=== PATIENT | female | born 1955 | race Hispanic/Latino ===

== ENCOUNTER 2020-10-17 07:27 | Day surgery (SDC) | payer BC ==
[2020-10-17] MEDS ORDERED: Ringers Lactate 1,000 ML IV ONE (08:06)
[2020-10-17] MEDS ORDERED: propofoL 200 MG/20 ML VIAL IV ONE (08:44)
[2020-10-17] MEDS ORDERED: LIDOCAINE 1% MPF 5 ML VIAL ONE (08:44)
--- NOTE | 2020-10-17 08:45 | ENDO RPT ---
[address], [address] COLONOSCOPY PROCEDURE REPORT EXAM DATE: 10/17/2020 PATIENT NAME: Belle Lion MR #: [id number] BIRTHDATE: 1955 ATTENDING: Lawrence Cutler MD STATUS: outpatient WEB MERCHANT: Galina Mercado RN and Maria Eugenia Og INDICATIONS: The patient is a 65 yr old Female here for a colonoscopy due to colon cancer screening, colon cancer screening, and colon cancer screening PROCEDURE PERFORMED: Colonoscopy and Colonoscopy MEDICATIONS: Per Anesthesia. ESTIMATED BLOOD LOSS: None CONSENT: The patient understands the risks and benefits of the procedure and understands that these risks include, but are not limited to: sedation, allergic reaction, infection, perforation and/or bleeding. Alternative means of evaluation and treatment include, among others: physical exam, x-rays, and/or surgical intervention. The patient elects to proceed with this endoscopic procedure. DESCRIPTION OF PROCEDURE: During intra-op preparation period all mechanical medical equipment was checked for proper function. Hand hygiene and appropriate measures for infection prevention was taken. Procedure, possible complications, alternatives including, but not limited to possibility of bleeding, perforation, tear, infection, sepsis, need for surgery, need for blood transfusion, were explained to the patient. After the risks, benefits and alternatives of the procedure were thoroughly explained, Informed consent was verified, confirmed and timeout was successfully executed by the treatment team. The patient was placed in the left lateral position. A digital rectal exam was performed and revealed external hemorrhoids. After appropriate level of anesthesia, the scope was passed. The EC-[id number] ([id number]) endoscope was introduced through the anus and advanced to the cecum, which was identified by transillumination from the light source, the appendix, and the ileocecal valve. The quality of the prep was good. The instrument was then slowly withdrawn as the colon was fully examined. Scope withdrawal time was . COLON FINDINGS: Internal and external hemorrhoids were found. Retroflexed views revealed no abnormalities. The scope was then completely withdrawn from the patient and the procedure terminated. ADVERSE EVENTS: There were no complications. IMPRESSIONS: Internal and external hemorrhoids RECOMMENDATIONS: 1. continue surveillance 2. hemorrhoidal hygiene RECALL: Return in 5-10 year(s) for Colonoscopy. Lawrence Cutler MD eSigned: Lawrence Cutler MD 10/17/2020 8:45 AM cc: Shaun Apple MD CPT CODES: ICD9 CODES: PATIENT NAME: Belle Lion MR#: [id number]
[2020-10-17 09:56] VITALS: TEMP 96.8
[2020-10-17 09:58] VITALS: BP 122/71; O2SAT 99
== END 2020-10-17 09:40 | disposition home or self-care (01) ==
LOC: OR 07:27
PROVIDERS: ATTEND Surgery
PROC: 0DJD8ZZ Inspection of Lower Intestinal Tract, Via Natural or Artificial Opening Endoscopic (ICD-10-PCS; principal; 2020-10-17 08:30)
DX: Z12.11 Encounter for screening for malignant neoplasm of colon (principal); K64.4 Residual hemorrhoidal skin tags; K64.8 Other hemorrhoids; Z20.822 Contact with and (suspected) exposure to COVID-19
CPT/HCPCS: 45378; U0003; J2704; J7120